=== PATIENT | female | born 1990 | race African-American/Black ===

== ENCOUNTER 2016-09-02 18:48 | Emergency (ER) | payer SELFPAY ==
[~2016-09-02] VITALS: Ht 154.9 cm; Wt 54.5 kg
[2016-09-02 19:52] VITALS: BP 127/82
[2016-09-02 20:07] LABS: APPEARANCE,URINE CLOUDY (CLEAR); GLUCOSE, URINE (UA) NEGATIVE (NEGATIVE); KETONES,URINE NEGATIVE (NEGATIVE); LEUKOCYTE ESTERASE ,URINE NEGATIVE (NEGATIVE); OCCULT BLOOD,URINE NEGATIVE (NEGATIVE); PH,URINE 5.5 (5.0-8.0); PROTEIN,URINE NEGATIVE (NEGATIVE)
[2016-09-02 20:08] LABS: ADD UA MICROSCOPIC NO
== END 2016-09-02 19:53 | disposition home or self-care (01) ==
LOC: EMS 18:51
DX: B37.3 Candidiasis of vulva and vagina (principal)
CPT/HCPCS: 99283